=== PATIENT | female | born 1980 | race Two or more races ===

== ENCOUNTER 2017-02-17 16:57 | Observation (INO) | payer SELFPAY ==
[~2017-02-17] VITALS: Ht 160 cm; Wt 85.0 kg
[2017-02-17] MEDS ORDERED: SODIUM CHLORIDE FLUSH 10ML SYR IVF ONE (17:30)
[2017-02-17 17:44] LABS: HEMOGLOBIN 13.5 g/dL (11.7-16.4)
[2017-02-17 17:56] LABS: ASPARTATE AMINO TRANSFERASE 116 U/L (15-37); BLOOD UREA NITROGEN 9 mg/dL (7-18)
[2017-02-17] MEDS ORDERED: SODIUM CHLORIDE 0.9% 1,000ML IVBOLUS ONE (18:00)
[2017-02-17] MEDS ORDERED: ONDANSETRON 2MG/ML, 2ML IVPush ONE (18:00)
[2017-02-17] MEDS ORDERED: ASPIRIN 81 MG TABLET CHEW PO ONE (18:00)
[2017-02-17] MEDS ORDERED: MAALOX/HYOSCYAMINE/LIDOCAINE 45 ML BOTTLE PO ONE (18:00)
[2017-02-17 18:02] LABS: IS PT STATUS REG ER OR PRE ER? YES
[2017-02-17] MEDS ORDERED: LEVO75TA5 PO (18:07)
[2017-02-17] MEDS ORDERED: AMOX-291 PO (18:07)
[2017-02-17] MEDS ORDERED: OMEP-110 PO (18:07)
[2017-02-17] MEDS ORDERED: CLAR500T PO (18:07)
[2017-02-17] MEDS ORDERED: ASPIRIN 81 MG TABLET CHEW ONE (18:11)
[2017-02-17] MEDS ORDERED: MAALOX/HYOSCYAMINE/LIDOCAINE 45 ML BOTTLE ONE (18:11)
[2017-02-17] MEDS ORDERED: ONDANSETRON 2MG/ML, 2ML ONE ×3 (18:11→20:59)
[2017-02-17] MEDS ORDERED: MORPHINE SULFATE 4 MG/ML, 1ML IVPush PRN (18:30)
[2017-02-17] MEDS ORDERED: MORPHINE SULFATE 4 MG/ML, 1ML ONE (18:47)
[2017-02-17] MEDS ORDERED: BUPIVACAINE/PF-EPI 0.25% 1:200K ONE (20:22)
[2017-02-17] MEDS ORDERED: MIDAZOLAM 1 MG/ML, 2ML ONE (20:29)
[2017-02-17] MEDS ORDERED: FENTANYL PF 250 MCG/5ML ONE (20:29)
[2017-02-17] MEDS ORDERED: CEFUROXIME 1.5 GM in SODIUM CHLORIDE 0.9% 50 ML IV ONE (20:30)
[2017-02-17] MEDS ORDERED: METOCLOPRAMIDE 5 MG/ML, 2ML ONE ×2 (20:39→20:59)
[2017-02-17] MEDS ORDERED: PROPOFOL 10 MG/ML, 20ML ONE ×2 (20:39→20:59)
[2017-02-17] MEDS ORDERED: KETOROLAC 30 MG/1 ML ONE ×2 (20:39→20:59)
[2017-02-17] MEDS ORDERED: ROCURONIUM 10 MG/ML ONE ×2 (20:39→20:59)
[2017-02-17] MEDS ORDERED: NEOSTIGMINE 1 MG/ML, 10ML ONE (20:59)
[2017-02-17] MEDS ORDERED: GLYCOPYRROLATE 0.2MG/1ML ONE (20:59)
[2017-02-17] MEDS ORDERED: ACETAMINOPHEN 325 MG TABLET PO PRN ×2 (21:00→22:30)
[2017-02-17] MEDS ORDERED: OXYcodone 5 MG/5 ML ORAL.SOL UDC PO PRN (21:00)
[2017-02-17] MEDS ORDERED: FENTANYL PF 100 MCG/2ML IV PRN (21:00)
[2017-02-17] MEDS ORDERED: HYDROmorphone 1 MG/ML, 1ML IV PRN (21:00)
[2017-02-17] MEDS ORDERED: PROMETHAZINE 25 MG/ML, 1ML IV PRN (21:00)
[2017-02-17] MEDS ORDERED: ONDANSETRON 2MG/ML, 2ML IVPush PRN ×2 (21:00→22:30)
[2017-02-17] MEDS ORDERED: MEPERIDINE/PF 25MG/0.5ML IVPush PRN (21:00)
[2017-02-17] MEDS ORDERED: LABETALOL 5MG/ML, 20ML IV PRN (21:00)
[2017-02-17] MEDS ORDERED: hydrALAzine 20 MG/ML, 1ML IV PRN (21:00)
[2017-02-17] MEDS ORDERED: BUPIVACAINE/PF-EPI 0.25% 1:200K INFIL ONE (21:24)
[2017-02-17] MEDS ORDERED: HYDROmorphone 1 MG/ML, 1ML ONE (22:09)
[2017-02-17] MEDS ORDERED: OXYcodone 5 MG/5 ML ORAL.SOL UDC ONE (22:25)
[2017-02-17] MEDS ORDERED: ACETAMINOPHEN 650 MG/20.3 ML UDC ONE (22:25)
[2017-02-17] MEDS ORDERED: FENTANYL PF 100 MCG/2ML ONE (22:25)
[2017-02-17] MEDS ORDERED: ACETAMINOPHEN 325 MG TABLET ONE (22:25)
[2017-02-17] MEDS ORDERED: MEPERIDINE/PF 25MG/0.5ML ONE (22:29)
[2017-02-17] MEDS ORDERED: PROMETHAZINE 25 MG/ML, 1ML IM PRN (22:30)
[2017-02-17] MEDS ORDERED: morphine SULFATE 10 MG/ML, 1ML IVPush PRN (22:30)
[2017-02-17 23:28] VITALS: BP 106/54
[2017-02-17] MEDS: CEFOTETAN PMX 1GM/50ML 50 ML IVPB SCH (23:55)
[2017-02-18] MEDS: D5%-0.45NACL+KCL 20MEQ 1,000 ML IV SCH ×2 (01:32→07:30)
[2017-02-18 04:11] VITALS: BP 103/52
[2017-02-18] MEDS: OXYcodone/APAP 7.5/325MG TABLET PO PRN ×3 (05:59→13:52)
[2017-02-18 06:32] LABS: HEMOGLOBIN 12.3 g/dL (11.7-16.4)
[2017-02-18 09:33] VITALS: BP 90/55
[2017-02-18] MEDS ORDERED: OXYC-223 PO (09:48)
[2017-02-18] MEDS ORDERED: ONDA4TAB7 PO (09:49)
[2017-02-18] MEDS: CEFOTETAN PMX 1GM/50ML 50 ML IVPB SCH (11:55)
[2017-02-18 12:40] VITALS: BP 90/57
[2017-02-18] MEDS ORDERED: ONDANSETRON ODT 4 MG PO PRN (13:30)
[2017-02-18] MEDS ORDERED: ONDANSETRON ODT 4 MG ONE (13:50)
== END 2017-02-18 14:20 | disposition home or self-care (01) ==
LOC: ED 18:14 → EDIP 20:40 → INTOOBSV 20:40 → 4NOR 22:55
PROVIDERS: ADMIT Surgery; ATTEND Surgery
DX: K81.0 Acute cholecystitis (principal); E03.9 Hypothyroidism, unspecified
CPT/HCPCS: 36415; 47562; 71010; 76700; 80053; 83690; 84484; 84703; 85025; 88304; 93005; 96365; 96366; 96375; 96376; 99285; G0378; J0697; J1170; J1885; J2175; J2250; J2270; J2405; J2704; J2710; J2765; J3010; J3480; Q0162; S0074; J3490

== ENCOUNTER → 2017-04-28 | Outpatient (CLI) | payer SELFPAY ==
[~2017-04-28] MED LIST: AMOX-291 PO; CLAR500T PO; FISH OIL; LEVO75TA5 PO; OMEP-110 PO; ONDA4TAB7 PO; OXYC-223 PO; VITAMIN D3
== END ==
LOC: STAR 11:28
PROVIDERS: ATTEND Internal Medicine Geriatric Medicine
DX: Z02.9 Encounter for administrative examinations, unspecified (principal)

== ENCOUNTER 2017-05-22 10:41 | Day surgery (SDC) | payer MEDICAID, OTHER ==
[~2017-05-22] VITALS: Ht 160 cm; Wt 80.0 kg
[2017-05-22 11:15] VITALS: BP 111/67
[2017-05-22 11:44] LABS: HCG UR OBC PASS
[2017-05-22 11:46] VITALS: BP 111/67
[2017-05-22] MEDS ORDERED: MEPERIDINE/PF 25MG/0.5ML IVPush PRN (13:00)
[2017-05-22] MEDS ORDERED: OXYcodone 5 MG/5 ML ORAL.SOL UDC PO PRN (13:00)
[2017-05-22] MEDS ORDERED: LABETALOL 5MG/ML, 20ML IV PRN (13:00)
[2017-05-22] MEDS ORDERED: MIDAZOLAM 1 MG/ML, 2ML IV PRN (13:00)
[2017-05-22] MEDS ORDERED: ONDANSETRON 2MG/ML, 2ML IVPush PRN (13:00)
[2017-05-22] MEDS ORDERED: PROMETHAZINE 25 MG/ML, 1ML IV PRN (13:00)
[2017-05-22] MEDS ORDERED: hydrALAzine 20 MG/ML, 1ML IV PRN (13:00)
[2017-05-22] MEDS ORDERED: FENTANYL PF 100 MCG/2ML IV PRN (13:00)
[2017-05-22] MEDS ORDERED: HYDROmorphone 1 MG/ML, 1ML IV PRN (13:00)
[2017-05-22] MEDS ORDERED: OMNIPAQUE 350 MG/ML, 50 ML BOTTLE ONE (13:07)
[2017-05-22] MEDS ORDERED: SUCCINYLCHOLINE 20 MG/ML, 10ML ONE (17:38)
[2017-05-22] MEDS ORDERED: PROPOFOL 10 MG/ML, 20ML ONE (17:38)
[2017-05-22] MEDS ORDERED: ROCURONIUM 10 MG/ML ONE (17:38)
== END 2017-05-22 14:55 ==
LOC: OUT 10:41
PROVIDERS: ATTEND Internal Medicine Geriatric Medicine
DX: K80.50 Calculus of bile duct without cholangitis or cholecystitis without obstruction (principal); E03.9 Hypothyroidism, unspecified; Z88.0 Allergy status to penicillin
CPT/HCPCS: 43262; 43264; 74328; 81025; J0330; J2704; Q9967